=== PATIENT | female | born 1980 | race American Indian/Alaskan Native ===

== ENCOUNTER 2019-06-05 14:11 | Emergency (ER) | payer SELFPAY ==
--- NOTE | 2019-06-05 14:28 | Emergency Department Report ---
ED ENT HPI - General Chief complaint: Dental/Oral Stated complaint: LFT SIDE ABCESS/SWELLING/PAIN Time Seen by Provider: 06/05/19 14:23 Source: patient Mode of arrival: Ambulatory Limitations: No Limitations - History of Present Illness Initial comments: This is a 38-year-old female nontoxic well in appearance with no signs of distress presents to the ED with complaint of toothache. Patient stated fritz sp,e right sided facial swelling. Denies following up with a dentist. Denies any fever, chills, headache, nausea, vomiting, chest pain or SOB. Denies any other complaints. Denies any allergies. MD complaint: tooth pain -: week(s) Location: tooth # 1 - pain here Severity: mild Severity scale (0 -10): 8 Quality: aching Consistency: constant Improves with: none Worsens with: none Context- Dental: history of dental caries, poor dental care Associated Symptoms: gum swelling, toothache. denies: fever, cough, pain with swallowing, sore throat, tinnitus, hearing loss, discharge from ear, rhinorrhea - Related Data Previous Rx's Medication Instructions Recorded Last Taken Type Acetaminophen/Codeine [Tylenol 1 tab PO Q6H PRN #12 tab 06/05/19 Unknown Rx /Codeine # 3 tab] Chlorhexidine Mouthwash [Peridex] 15 ml MM BID #1 bottle 06/05/19 Unknown Rx Clindamycin [Clindamycin CAP] 300 mg PO Q8H #21 cap 06/05/19 Unknown Rx Allergies Allergy/AdvReac Type Severity Reaction Status Date / Time No Known Allergies Allergy Verified 06/05/19 14:13 ED Dental HPI - General Chief complaint: Dental/Oral Stated complaint: LFT SIDE ABCESS/SWELLING/PAIN Time Seen by Provider: 06/05/19 14:23 Source: patient Mode of arrival: Ambulatory Limitations: No Limitations - Related Data Previous Rx's Medication Instructions Recorded Last Taken Type Acetaminophen/Codeine [Tylenol 1 tab PO Q6H PRN #12 tab 06/05/19 Unknown Rx /Codeine # 3 tab] Chlorhexidine Mouthwash [Peridex] 15 ml MM BID #1 bottle 06/05/19 Unknown Rx Clindamycin [Clindamycin CAP] 300 mg PO Q8H #21 cap 06/05/19 Unknown Rx Allergies Allergy/AdvReac Type Severity Reaction Status Date / Time No Known Allergies Allergy Verified 06/05/19 14:13 ED Review of Systems ROS: Stated complaint: LFT SIDE ABCESS/SWELLING/PAIN Other details as noted in HPI Constitutional: denies: chills, fever Eyes: denies: eye pain, eye discharge, vision change ENT: dental pain. denies: ear pain, throat pain Respiratory: denies: cough, shortness of breath, wheezing Cardiovascular: denies: chest pain, palpitations Endocrine: no symptoms reported Gastrointestinal: denies: abdominal pain, nausea, diarrhea Genitourinary: denies: urgency, dysuria, discharge Musculoskeletal: denies: back pain, joint swelling, arthralgia Skin: denies: rash, lesions Neurological: denies: headache, weakness, paresthesias Psychiatric: denies: anxiety, depression Hematological/Lymphatic: denies: easy bleeding, easy bruising ED Past Medical Hx - Past Medical History Previous Medical History?: No Hx Diabetes: Yes - Surgical History Past Surgical History?: No - Medications Home Medications: Home Medications Medication Instructions Recorded Confirmed Last Taken Type Acetaminophen/Codeine [Tylenol 1 tab PO Q6H PRN #12 tab 06/05/19 Unknown Rx /Codeine # 3 tab] Chlorhexidine Mouthwash [Peridex] 15 ml MM BID #1 bottle 06/05/19 Unknown Rx Clindamycin [Clindamycin CAP] 300 mg PO Q8H #21 cap 06/05/19 Unknown Rx ED Physical Exam - General Limitations: No Limitations General appearance: alert, in no apparent distress - Head Head exam: Present: atraumatic, normocephalic - Expanded ENT Exam Expanded Ear exam: Present: normal external inspection Mouth exam: Present: normal external inspection, tongue normal. Absent: drooling, trismus, muffled voice Teeth exam: Present: dental caries, fractured tooth #, dental tenderness #, gingival enlargement, other (slight facial swelling with no induration or flutance. no abscess present.) Throat exam: Positive: normal inspection, other (uvula midline). Negative: tonsillar erythema, tonsillomegaly, tonsillar exudate, R peritonsillar mass, L peritonsillar mass - Neck Neck exam: Present: normal inspection, full ROM. Absent: tenderness, meningismus, lymphadenopathy - Extremities Exam Extremities exam: Present: normal inspection, full ROM - Back Exam Back exam: Present: normal inspection, full ROM - Neurological Exam Neurological exam: Present: alert, oriented X3, normal gait - Psychiatric Psychiatric exam: Present: normal affect, normal mood - Skin Skin exam: Present: warm, dry, intact, normal color. Absent: rash ED Course - Reevaluation(s) Reevaluation #1: 06/05/19 14:26 Patient is speaking in full sentences with no signs of distress noted. ED Medical Decision Making - Medical Decision Making Patient was instructed to Follow-up with a dentist doctor in 2 days or if symptoms worsen and continue return to emergency room as soon as possible. At time of discharge, the patient does not seem toxic or ill in appearance. No acute signs of distress noted. Patient agrees to discharge treatment plan of care. No further questions noted by the patient. Critical care attestation.: If time is entered above; I have spent that time in minutes in the direct care of this critically ill patient, excluding procedure time. ED Disposition Clinical Impression: Dental caries, Gingivitis Disposition: - TO HOME OR SELFCARE Is pt being admited?: No Does the pt Need Aspirin: No Condition: Stable Instructions: Dental Caries (ED), Gingivitis (ED), Acetaminophen/Codeine (By mouth) Additional Instructions: Follow-up with a dentist doctor in 2 days or if symptoms worsen and continue return to emergency room as soon as possible. Prescriptions: Clindamycin [Clindamycin CAP] 300 mg PO Q8H #21 cap Chlorhexidine Mouthwash [Peridex] 15 ml MM BID #1 bottle Acetaminophen/Codeine [Tylenol /Codeine # 3 tab] 1 tab PO Q6H PRN #12 tab PRN Reason: Pain , Severe (7-10) Referrals: PRIMARY CARE, [Referring] - 3-5 Days ALEJA CABRAL MD [Staff Physician] - 3-5 Days [facility] [Outside] - 2-3 Days Forms: Work/School Release Form(ED)
[2019-06-05 14:29] VITALS: BP 146/92
== END 2019-06-05 15:23 | disposition home or self-care (01) ==
LOC: ED 14:11
DX: K02.9 Dental caries, unspecified (principal); K05.10 Chronic gingivitis, plaque induced; E11.9 Type 2 diabetes mellitus without complications
CPT/HCPCS: 99281

== ENCOUNTER 2022-01-30 12:44 | Emergency (ER) | payer SELFPAY ==
[2022-01-30] MEDS ORDERED: METOCLOPRAMIDE 10 MG/2 ML INJ IV ONE (14:04)
[2022-01-30] MEDS ORDERED: SODIUM CHLORIDE 0.9% 1000 ML 1,000 ML IV ONE ×2 (14:04→17:06)
[2022-01-30] MEDS ORDERED: MORPHINE 4 MG/1 ML INJ IV ONE (14:04)
[2022-01-30] MEDS ORDERED: diphenhydrAMINE 50 MG/ML VIAL IV ONE (14:04)
[2022-01-30 15:55] LABS: Basophils % (Auto) 0.2 % (0.0-1.8); Hematocrit 34.4 % (30.3-42.9); Lymphocytes % (Auto) 7.4 % (13.4-35.0); Mean Corpuscular HGB Conc 32 % (30-34); Mean Corpuscular Volume 82 fl (79-97); Monocytes # (Auto) 0.8 K/mm3 (0.0-0.8); Monocytes % (Auto) 5.5 % (0.0-7.3); Platelet Count 361 K/mm3 (140-440); Red Blood Count 4.18 M/mm3 (3.65-5.03)
[2022-01-30 16:50] LABS: Alanine Aminotransferase 9 units/L (7-56); Albumin 3.8 g/dL (3.9-5); Blood Urea Nitrogen 6 mg/dL (7-17); Calcium 8.6 mg/dL (8.4-10.2); Hemolysis Index 0
[2022-01-30 16:51] LABS: BUN/Creatinine Ratio 12
[2022-01-30 17:00] LABS: Mucus,Urine FEW /HPF
[2022-01-30 17:10] LABS: Color,Urine Yellow (Yellow)
[2022-01-30 17:11] LABS: Bilirubin,Urine Negative (Negative)
[2022-01-30 17:12] LABS: Blood,Urine Negative (Negative); PH,Urine 7.5 (5.0-7.0); Protein,Urine <30 mg dL mg/dL (Negative)
--- NOTE | 2022-01-30 18:38 | Cat Scan Report ---
CT abdomen pelvis w con INDICATION / CLINICAL INFORMATION: LOWER ABDOMINAL PAIN. TECHNIQUE: Axial CT imaging of abdomen and pelvis was obtained with 100 mL Omnipaque 300 contrast. Coronal and s agittal reformatted imaging obtained and reviewed. All CT scans at this location are performed using CT dose reduction for ALARA by means of automated exposure control. COMPARISON: None available. FINDINGS: CT abdomen with contrast demonstrates normal appearance of the liver, spleen, pancreas, kidneys, and adrenal glands. Gallbladder is present and without visible abnormality. No biliary dilatation. Abdomi nal aorta is normal. CT pelvis with contrast demonstrates mildly enlarged uterus. There is a small cyst in the left ovary with appearance typical for postovulatory cyst. The appendix is surgically absent. No focal inflammat ory change noted within the pelvis. There is mild inflammatory change throughout the colon primarily affecting the distal half of transverse colon, descending colon, and sigmoid colon. The appearance is consistent with mild colitis. The remainder of the GI tract is normal. Visualized lung bases are clear. No acute osseous abnormality noted. IMPRESSION: 1. Mild colitis involving the distal transverse colon, sigmoid colon, and descending colon. 2. No other significant finding. Signer Name: Samantha Guallpa MD Signed: 01/30/2022 6:34 PM Workstation Name: [id number]
[2022-01-30] MEDS ORDERED: metroNIDAZOLE 500 MG TAB PO ONE ×2 (18:50→21:15)
[2022-01-30] MEDS ORDERED: levoFLOXacin 500 MG TAB PO ONE ×2 (18:50→21:15)
[2022-01-30] MEDS ORDERED: KETOROLAC 30 MG/1 ML INJ IV ONE ×2 (18:51→21:15)
--- NOTE | 2022-01-30 19:05 | Emergency Department Report ---
ED Abdominal Pain HPI - General Chief Complaint: Nausea/Vomiting/Diarrhea Stated Complaint: N/V ABD PAIN Source: patient, EMS Mode of arrival: Ambulatory Limitations: No Limitations - History of Present Illness Initial Comments: Patient is a 41-year-old -[place] female with a history of ezr-[id number]-[id number] diabetes who presents to the ED with complaint of acute onset persistent diffuse lower abdominal pain with intractable nausea and vomiting and diarrhea for the last 8 hours. Patient states that he has not been able to keep anything down because of persistent nausea and vomiting. Patient states that no one else at home is had similar symptoms. Patient states that she has not taken a diabetes medicine in over 2 years after losing weight significantly. Patient denies dizziness, syncope, chest pain, shortness of breath, fever, chills, dysuria, urinary frequency and urgency, vaginal bleeding, low back pain, or hematochezia. MD Complaint: abdominal pain -: Sudden, hour(s) (8) Location: LLQ, RLQ, suprapubic Radiation: LLQ, RLQ Severity: severe Severity scale (0 -10): 8 Quality: aching, sharp Consistency: constant Improves With: nothing Worsens With: vomiting Context: possible food poisoning Associated Symptoms: nausea, vomiting, diarrhea, anorexia. denies: fever, constipation, dysuria, hematemesis, melena, syncope, other - Related Data LMP Date: 01/19/22 Previous Rx's Medication Instructions Recorded Last Taken Type Acetaminophen/Codeine [Tylenol 1 tab PO Q6H PRN #12 tab 06/05/19 Unknown Rx /Codeine # 3 tab] Chlorhexidine Mouthwash [Peridex] 15 ml MM BID #1 bottle 06/05/19 Unknown Rx Clindamycin [Clindamycin CAP] 300 mg PO Q8H #21 cap 06/05/19 Unknown Rx Ciprofloxacin HCl 500 mg PO Q12H #20 tab 01/30/22 Unknown Rx Dicyclomine [Bentyl] 20 mg PO Q6H PRN #30 tablet 01/30/22 Unknown Rx Ketorolac [Toradol] 10 mg PO Q8H PRN #20 tab 01/30/22 Unknown Rx Ondansetron [Zofran Odt] 4 mg PO Q8HR PRN #20 tab.rapdis 01/30/22 Unknown Rx metroNIDAZOLE [Flagyl] 500 mg PO Q8HR #30 tablet 01/30/22 Unknown Rx Allergies Allergy/AdvReac Type Severity Reaction Status Date / Time No Known Allergies Allergy Verified 01/30/22 13:06 ED Review of Systems ROS: Stated complaint: N/V ABD PAIN Other details as noted in HPI Constitutional: denies: chills, fever Eyes: denies: eye pain, eye discharge, vision change ENT: denies: ear pain, throat pain Respiratory: denies: cough, shortness of breath, wheezing Cardiovascular: denies: chest pain, palpitations Endocrine: no symptoms reported Gastrointestinal: abdominal pain, nausea, vomiting, diarrhea Genitourinary: denies: urgency, dysuria, discharge Musculoskeletal: denies: back pain, joint swelling, arthralgia Skin: denies: rash, lesions Neurological: denies: headache, weakness, paresthesias Psychiatric: denies: anxiety, depression Hematological/Lymphatic: denies: easy bleeding, easy bruising ED Past Medical Hx - Past Medical History Hx Diabetes: Yes - Medications Home Medications: Home Medications Medication Instructions Recorded Confirmed Last Taken Type Acetaminophen/Codeine [Tylenol 1 tab PO Q6H PRN #12 tab 06/05/19 Unknown Rx /Codeine # 3 tab] Chlorhexidine Mouthwash [Peridex] 15 ml MM BID #1 bottle 06/05/19 Unknown Rx Clindamycin [Clindamycin CAP] 300 mg PO Q8H #21 cap 06/05/19 Unknown Rx Ciprofloxacin HCl 500 mg PO Q12H #20 tab 01/30/22 Unknown Rx Dicyclomine [Bentyl] 20 mg PO Q6H PRN #30 tablet 01/30/22 Unknown Rx Ketorolac [Toradol] 10 mg PO Q8H PRN #20 tab 01/30/22 Unknown Rx Ondansetron [Zofran Odt] 4 mg PO Q8HR PRN #20 tab.rapdis 01/30/22 Unknown Rx metroNIDAZOLE [Flagyl] 500 mg PO Q8HR #30 tablet 01/30/22 Unknown Rx ED Physical Exam - General Limitations: No Limitations ( bn) General appearance: alert, in no apparent distress - Head Head exam: Present: atraumatic, normocephalic, normal inspection - Eye Eye exam: Present: normal appearance, PERRL, EOMI Pupils: Present: normal accommodation - ENT ENT exam: Present: normal exam, normal orophraynx, mucous membranes moist, TM's normal bilaterally, normal external ear exam - Neck Neck exam: Present: normal inspection, full ROM - Respiratory Respiratory exam: Present: normal lung sounds bilaterally. Absent: respiratory distress, wheezes, rales, rhonchi, chest wall tenderness, accessory muscle use, decreased breath sounds - Cardiovascular Cardiovascular Exam: Present: regular rate, normal rhythm, normal heart sounds. Absent: systolic murmur, diastolic murmur, rubs, gallop - GI/Abdominal GI/Abdominal exam: Present: soft, tenderness (diffuse lower abdominal tender), normal bowel sounds. Absent: guarding, rebound, hyperactive bowel sounds, hypoactive bowel sounds, organomegaly, bruit, pulsatile mass - Extremities Exam Extremities exam: Present: normal inspection, full ROM, normal capillary refill. Absent: tenderness - Back Exam Back exam: Present: normal inspection, full ROM. Absent: tenderness, CVA tenderness (R), CVA tenderness (L), muscle spasm, paraspinal tenderness, vertebral tenderness - Neurological Exam Neurological exam: Present: alert, oriented X3, CN II-XII intact, normal gait, reflexes normal - Psychiatric Psychiatric exam: Present: normal affect, normal mood - Skin Skin exam: Present: warm, dry, intact, normal color. Absent: rash ED Course Vital Signs 01/30/22 13:04 Temperature 97.4 F L Pulse Rate 83 Respiratory 16 Rate Blood Pressure 132/76 [Left] O2 Sat by Pulse 100 Oximetry ED Medical Decision Making - Lab Data Result diagrams: 01/30/22 14:47 01/30/22 14:47 - Radiology Data Radiology results: report reviewed, image reviewed [address] [address] Cat Scan Report Signed Patient: KRISTI NUNN MR#: [id number] : 1980 Acct:[id number] Age/Sex: 41 / F ADM Date: 01/30/22 Loc: ED Attending Dr: Ordering Physician: ANDREZ MISTRY Date of Service: 01/30/22 Procedure(s): CT abdomen pelvis w con Accession Number(s): [id number] cc: ANDREZ MISTRY CT abdomen pelvis w con INDICATION / CLINICAL INFORMATION: LOWER ABDOMINAL PAIN. TECHNIQUE: Axial CT imaging of abdomen and pelvis was obtained with 100 mL Omnipaque 300 contrast. Coronal and sagittal reformatted imaging obtained and reviewed. All CT scans at this location are performed using CT dose reduction for ALARA by means of automated exposure control. COMPARISON: None available. FINDINGS: CT abdomen with contrast demonstrates normal appearance of the liver, spleen, pancreas, kidneys, and adrenal glands. Gallbladder is present and without visible abnormality. No biliary dilatation. Abdominal aorta is normal. CT pelvis with contrast demonstrates mildly enlarged uterus. There is a small cyst in the left ovary with appearance typical for postovulatory cyst. The appendix is surgically absent. No focal inflammatory change noted within the pelvis. There is mild inflammatory change throughout the colon primarily affecting the distal half of transverse colon, descending colon, and sigmoid colon. The appearance is consistent with mild colitis. The remainder of the GI tract is normal. Visualized lung bases are clear. No acute osseous abnormality noted. IMPRESSION: 1. Mild colitis involving the distal transverse colon, sigmoid colon, and descending colon. 2. No other significant finding. Signer Name: Samantha Guallpa MD Signed: 01/30/2022 6:34 PM Workstation Name: [id number] Transcribed By: JR Dictated By: Samantha Guallpa MD Electronically Authenticated By: Samantha Guallpa MD Signed Date/Time: 01/30/221833 DD/ 29 TD/TT: Print Cancel - Medical Decision Making This is a 41-year-old -[place] female with a history of jgu-hogztzy-hdjitaypn diabetes who presents to the ED with complaint of acute onset persistent diffuse lower abdominal pain with intractable nausea and vomiting and diarrhea for the last 8 hours. Patient states that he has not been able to keep anything down because of persistent nausea and vomiting. Patient states that no one else at home is had similar symptoms. Patient states that she has not taken a diabetes medicine in over 2 years after losing weight significantly. In the ED, patient is alert and oriented x3 and is not in any d istress. Patient however appears to be in significant pain, having nausea and vomiting during the physical exam. Patient was treated for nausea and vomiting and pain, also received normal saline 1 L IV bolus x1, and antacids. Patient also received additional 1 L of normal saline IV bolus. Lab test results were reviewed and showed acute leukocytosis of 13,900, and hyperglycemia of 300 mg/dL. The abdomen pelvis CT scan with IV contrast showed Mild colitis involving the distal transverse colon, sigmoid colon, and descending colon. On reevaluation, patient's pain is well controlled medication. Patient also received Flagyl for a milligram p.o. x1 and Levaquin 500 mg p.o. x1 in the ED. The patient was discharged home on medications including oral antibiotics and pain medications and antiemetics and was advised to follow-up with her primary care physician in 5 to 7 days for reevaluation or return to the ED immediately if symptoms get worse. - Differential Diagnosis UTI; diverticulitis; ovarian cyst; ; fibroid; kidney stone; coliti Critical care attestation.: If time is entered above; I have spent that time in minutes in the direct care of this critically ill patient, excluding procedure time. ED Disposition Clinical Impression: Abdominal pain, bilateral lower quadrant, Nausea, vomiting and diarrhea, Acute colitis Disposition: 01 HOME / SELF CARE / HOMELESS Is pt being admited?: No Does the pt Need Aspirin: No Condition: Stable Instructions: Abdominal Pain, Adult, [id number], Viral Gastroenteritis, Adult, [id number], Nausea and Vomiting, Adult, [id number], Diarrhea, Adult, [id number], Colitis Additional Instructions: All lab test results were reviewed and are all nonactionable. Abdomen pelvis CT scan with IV contrast showed mild colitis involving the distal transverse colon, sigmoid colon, and descending colon. Therefore take medications with food, drink plenty of fluids and follow-up with your primary care physician in 5 to 7 days for reevaluation. Return to the ED immediately if symptoms get wor se. Prescriptions: Dicyclomine [Bentyl] 20 mg PO Q6H PRN #30 tablet PRN Reason: Abdominal pain Ciprofloxacin HCl 500 mg PO Q12H #20 tab metroNIDAZOLE [Flagyl] 500 mg PO Q8HR #30 tablet Ketorolac [Toradol] 10 mg PO Q8H PRN #20 tab PRN Reason: Pain Ondansetron [Zofran Odt] 4 mg PO Q8HR PRN #20 tab.rapdis PRN Reason: Nausea Referrals: [facility] [Provider Group] - 3-5 Days Forms: Work/School Release Form(ED) Time of Disposition: 19:49 Print Language: CHADIAN
[2022-01-30 21:30] VITALS: BP 137/81
== END 2022-01-30 21:30 | disposition home or self-care (01) ==
LOC: ED 12:44
DX: K52.9 Noninfective gastroenteritis and colitis, unspecified (principal); R10.31 Right lower quadrant pain; R10.32 Left lower quadrant pain; R11.2 Nausea with vomiting, unspecified; E11.9 Type 2 diabetes mellitus without complications; Z79.899 Other long term (current) drug therapy
CPT/HCPCS: 36415; 74177; 80053; 81001; 84703; 85025; 96361; 96374; 96375; 99284; J1200; J1885; J2270; J2765; J7030; Q9967